=== PATIENT | female | born 1980 | race Caucasian/White ===

== ENCOUNTER 2020-05-28 17:24 | Inpatient (IN) ==
[2020-05-29] MEDS ORDERED: Sennosides 8.6 MG TABLET PO PRN (18:34)
[2020-05-29] MEDS: *HR* OxyCODONE/APAP 5/325 TABLET PO PRN (20:57)
[2020-05-30] MEDS: Acetaminophen 325 MG TABLET PO PRN (00:18)
[2020-05-30] MEDS: *HR* OxyCODONE/APAP 5/325 TABLET PO PRN ×2 (01:01→05:36)
[2020-05-30] MEDS: *HR* Enoxaparin 40 MG/0.4 ML SYRINGE SQ SCH (05:37)
[2020-05-30 07:23] LABS: Basophils % 0.3 %; Eosinophils # 0.1 K/mcL (0.0-0.6); Eosinophils % 2.2 %; Hematocrit 32.6 % (35.3-44.9); Hemoglobin 10.6 g/dL (11.5-15.4); Immature Granulocytes % 0.6 % (0-4); Lymphocytes # 1.4 K/mcL (0.6-4.6); Lymphocytes % 22.8 %; Mean Corpuscular HGB Conc 32.5 g/dL (31.6-35.5); Mean Corpuscular Hemoglobin 29.6 pg (28.0-33.3); Mean Corpuscular Volume 91.1 fL (83.0-100.0); Mean Platelet Volume 11.4 fL (9.4-12.4); Monocytes # 0.5 K/mcL (0.0-1.3); Monocytes % 8.7 %; Neutrophils # 4.1 K/mcL (1.6-8.9); Platelet Count 250 K/mcL (140-400); Red Blood Count 3.58 M/mcL (3.82-4.97); Red Cell Distribution Width 13.3 % (11.5-14.5); Segmented Neutrophils % 65.4 %; White Blood Count 6.2 K/mcL (4.3-11.1)
[2020-05-30 07:40] LABS: BUN/Creatinine Ratio 15 (6-26); Blood Urea Nitrogen 10 mg/dL (6-20); Calcium 8.5 mg/dL (8.6-10.3); Carbon Dioxide 29 mEq/L (23-29); Chloride 102 mEq/L (98-107); Glucose 99 mg/dL (70-105); Osmolality,Calculated 283 (280-300); Potassium 4.4 mEq/L (3.5-5.1); Sodium 137 mEq/L (136-145); eGFR For African Americans > 60 (> 60); eGFR For Non-African Americans > 60 (> 60)
[2020-05-30] MEDS: *HR* OxyCODONE/APAP 10/325 TABLET PO PRN ×3 (09:52→22:22)
[2020-05-30] MEDS ORDERED: Albuterol 2.5 MG/3 ML NEBULIZER IH PRN (17:12)
[2020-05-31] MEDS: Acetaminophen 325 MG TABLET PO PRN (03:46)
[2020-05-31] MEDS: *HR* Enoxaparin 40 MG/0.4 ML SYRINGE SQ SCH (05:01)
[2020-05-31] MEDS: *HR* OxyCODONE/APAP 10/325 TABLET PO PRN ×3 (05:01→18:20)
[2020-06-01] MEDS: *HR* OxyCODONE/APAP 10/325 TABLET PO PRN ×4 (00:42→21:14)
[2020-06-01] MEDS: *HR* Enoxaparin 40 MG/0.4 ML SYRINGE SQ SCH (05:02)
[2020-06-01] MEDS: Acetaminophen 325 MG TABLET PO PRN (06:01)
[2020-06-02] MEDS: *HR* OxyCODONE/APAP 10/325 TABLET PO PRN ×2 (04:29→10:44)
[2020-06-02] MEDS: *HR* Enoxaparin 40 MG/0.4 ML SYRINGE SQ SCH (04:29)
[2020-06-02 06:45] VITALS: BP 130/68
[2020-06-02] MEDS: Acetaminophen 325 MG TABLET PO PRN (15:42)
== END 2020-06-02 17:53 | disposition home or self-care (01) | DRG 561 ==
LOC: INPPIK 05-29 19:12
PROVIDERS: ADMIT Family Medicine; ATTEND Family Medicine